=== PATIENT | female | born 1950 | race Caucasian/White ===

== ENCOUNTER → 2018-03-24 | Outpatient (CLI) | payer OTHER ==
--- NOTE | 2018-03-24 15:54 | RAD ---
DATE: 03/24/2018 EXAM: DIGITAL SCREEN BILAT W/CAD HISTORY: Transgender screening, male to female COMPARISON: Baseline study This study was interpreted with the benefit of Computerized Aided Detection (CAD). Breast Density: SCATTERED The breast parenchyma shows scattered fibroglandular densities. Breast parenchyma level B. FINDINGS: There is a small asymmetric density at the 12:00 location in the right breast. There are scattered benign type calcifications in both breasts. There is a tight cluster of microcalcifications in the upper inner left breast. No other suspicious microcalcifications are seen. IMPRESSION: 1. Mild right breast asymmetry. Diagnostic mammograms and right breast ultrasound are suggested for further evaluation. 2. Cluster of microcalcifications medially in the left breast. Magnification and straight mediolateral views are suggested for optimal characterization. BI-RADS CATEGORY: 0 INCOMPLETE: NEEDS ADDITIONAL IMAGING EVALUATION AND/OR PRIOR MAMMOGRAMS FOR COMPARISON. RECOMMENDED FOLLOW-UP: ADD ADDITIONAL IMAGING PQRS compliance statement: Patient information was entered into a reminder system with a target due date for the next mammogram. Mammography is a sensitive method for finding small breast cancers, but it does not detect them all and is not a substitute for careful clinical examination. A negative mammogram does not negate a clinically suspicious finding and should not result in delay in biopsying a clinically suspicious abnormality. "Our facility is accredited by the [employer] Mammography [employer]."
== END | disposition home or self-care (01) ==
LOC: MAMMO 12:25
PROVIDERS: ATTEND Nurse Practitioner Family
DX: Z12.31 Encounter for screening mammogram for malignant neoplasm of breast (principal)
CPT/HCPCS: 77067

== ENCOUNTER → 2018-04-07 | Outpatient (CLI) | payer OTHER ==
--- NOTE | 2018-04-07 13:59 | RAD ---
DATE: April 07, 2018 EXAM: DIGITAL DIAGNOSTIC BILATERAL, BREAST RIGHT HISTORY: Transgender patient. Taking estrogen hormones. Stopped taking them in January 2018. Asymmetry of the upper aspect of the right breast seen on screening mammogram dated March 24, 2018. Group of calcifications of the upper medial aspect of the breast seen on the same screening mammogram. COMPARISON: March 24, 2018. This study was interpreted with the benefit of Computerized Aided Detection (CAD). FINDINGS: Focal digital compression views of the right breast in the CC and MLO projections and a digital 90 degree mediolateral view of the right breast were performed. The previously seen area of asymmetry of the 11-12:00 position of the right breast compresses out and no underlying mass lesion or nodule or architectural distortion is seen. This is consistent with asymmetric gynecomastia. Focal digital magnification compression views of the left breast were performed in the CC and MLO projections and a digital 90 degree mediolateral view of the left breast were performed. There is a group of calcifications within the upper medial aspect of the left breast which do not layer in the 90 degree view. However, these calcifications are all similar in shape and size and density like a arianna. Therefore, they most likely arw benign calcifications and may be followed in 6 months. RIGHT BREAST SONOGRAPHY: High-resolution sonography of the 11 to 1:00 position of the right breast was performed. No focal sonographic abnormality is seen confirming benign finding of the right breast. IMPRESSION: Benign finding of right breast cyst with asymmetric gynecomastia. Probable benign calcifications of the left breast. This may be followed with a 6 month follow-up mammogram of the left breast to include magnification compression views in the CC and MLO projections. BI-RADS CATEGORY: 3 PROBABLE BENIGN-SHORT TERM F/U RECOMMENDED FOLLOW-UP: 6M 6 MONTH FOLLOW-UP PQRS compliance statement: Patient information was entered into a reminder system with a target due date September 21, 2018 for the next mammogram. Mammography is a sensitive method for finding small breast cancers, but it does not detect them all and is not a substitute for careful clinical examination. A negative mammogram does not negate a clinically suspicious finding and should not result in delay in biopsying a clinically suspicious abnormality. "Our facility is accredited by the [employer] Mammography [employer]."
== END | disposition home or self-care (01) ==
LOC: MAMMO 12:48
PROVIDERS: ATTEND Nurse Practitioner Family
DX: N60.01 Solitary cyst of right breast (principal)
CPT/HCPCS: 76641; 77066

== ENCOUNTER → 2019-01-11 | Outpatient (CLI) | payer OTHER ==
--- NOTE | 2019-01-11 13:58 | RAD ---
DATE: January 11, 2019 EXAM: DIGITAL DIAGNOSTIC LT HISTORY: Follow-up of calcifications of the left breast. COMPARISON: April 07, 2018. This study was interpreted with the benefit of Computerized Aided Detection (CAD). FINDINGS: Breast Density: SCATTERED The breast parenchyma shows scattered fibroglandular densities. Breast parenchyma level B.. Again seen are a group of calcifications posteriorly in the upper inner quadrant of the left breast which are stable. No new mammographic abnormality. IMPRESSION: Stable calcifications of the left breast which most likely are benign. Recommend bilateral mammography in 6 months. BI-RADS CATEGORY: 3 PROBABLE BENIGN-SHORT TERM F/U RECOMMENDED FOLLOW-UP: 6M 6 MONTH FOLLOW-UP PQRS compliance statement: Patient information was entered into a reminder system with a target due date July 13, 2019 for the next mammogram. Mammography is a sensitive method for finding small breast cancers, but it does not detect them all and is not a substitute for careful clinical examination. A negative mammogram does not negate a clinically suspicious finding and should not result in delay in biopsying a clinically suspicious abnormality. "Our facility is accredited by the [employer] Mammography [employer]." The patient's breast density may affect the ability of mammography to detect breast cancer. There are 4 categories of breast density, A, B, C and D. Breast density A means that most of the breast tissue is replaced with adipose tissue and therefore is not dense. Breast density B means that the breast tissue is mildly dense and scattered. Breast density C means that the breast tissue is heterogeneously dense. Breast density D means that the breast tissue is very dense. Breast densities especially C and D may decrease the sensitivity of mammography to detect breast cancer. Therefore, the patient may benefit from 3-D breast mammography (3D breast tomography) as a part of their screening mammogram. Insurance may or may not pay for this additional imaging. The patient's breast density based on today's mammogram is category B.
== END | disposition home or self-care (01) ==
LOC: MAMMO 14:08
PROVIDERS: ATTEND Nurse Practitioner Family
DX: R92.1 Mammographic calcification found on diagnostic imaging of breast (principal)
CPT/HCPCS: 77065